=== PATIENT | female | born 1960 | race Caucasian/White ===

== ENCOUNTER 2017-12-19 13:49 | Day surgery (SDC) | payer BC ==
[2017-12-19 14:21] VITALS: BMI 24.7
[2017-12-19] MEDS ORDERED: PROPOFOL 20 ML ONE (15:13)
[2017-12-19] MEDS ORDERED: MIDAZOLAM HCL 2 MG/2 ML SINGLE DOSE VIAL ONE (15:13)
[2017-12-19] MEDS ORDERED: DEXAMETHASONE SOD PHOSPHATE 4 MG/1 ML VIAL ONE (15:14)
[2017-12-19] MEDS ORDERED: LIDOCAINE HCL/PF 2% SDV 5ML VIAL ONE (15:14)
--- NOTE | 2017-12-19 15:32 | HP ---
Past Medical History - Primary Care Physician PCP:: Chet Jovel - Admission Chief Complaint: 57yo P2 with menorrhagia and thickened Endom echo admitted for D&C History of Present Illness: LMP 6 mo ago. Pt began bleeding 2-3 days ago, heavily. She was noted to thickened Endo on US History Source: Patient, Medical Record Limitations to Obtaining History: No Limitations - Past Medical History POWDER SHOVELER: No: Alzheimer's, CVA, Dementia, Migraine, Multiple Sclerosis, Peripheral Neuropathy, Parkinson's, Seizure, Syncope, TIA, Vertigo, Other Cardiovascular: No: AFIB, Aneurysm, Aortic Insufficiency, Aortic Stenosis, CAD, CHF, Deep Vein Thrombosis, HTN, Hyperlipdemia, MA, Mitral Insufficiency, Mitral Stenosis, Murmur, Pulmonary Hypertension, Other Pulmonary: No: Asthma, Bronchitis, Cancer, COPD, O2 Dependent, Pneumonia, Previously Intubated, Pulmonary Embolus, Pulmonary Fibrosis, Sleep Apnea, Other Gastrointestinal: No: Ascites, Cancer, Constipation, Crohn's Disease, Diverticulitis, Diverticulosis, Esophageal Varices, Gastritis, GERD, GI Bleed, Hemorrhoids, Hiatal Hernia, Inflamatory Bowel Disease, Irritable Bowel Disease, Pancreatitis, Peptic Ulcer Disease, Ulcerative Colitis, Other Hepatobiliary: No: Cirrhosis, Cholelithiasis, Cholecystitis, Choledocholithiasis , Hepatitis A, Hepatitis B, Hepatitis C, Other Renal/: No: Renal Failure, Renal Inusuff, BPH, Cancer, Hematuria, Hemodialysis , Neurogenic Bladder, Renal Calculi, UTI, Other Reproductive: No: Ectopic , Endometriosis, Fibroids, PID, Polycystic Ovary Syndrome, Postmenopausal, Other ...Para: 2 (C/S) Heme/Onc: No: Anemia, B12 Deficiency, Bleeding Disorder, Cancer, Current Chemotherapy, Current Radiation Therapy, Hemochromatosis, Hypercoaguable State, Myeloproliferative Synd, Sickle Cell Disease, Sickle Cell Trait, Thrombocytopenia, Other Infectious Disease: No: AIDS, C-Diff, Herpes Zoster, HIV, MRSA, STD's, Tuberculosis, VREF, Other Psych: No: Addictions, Anxiety, Bipolar, Depression, Panic, Psychosis, Schizophrenia, Other Musculoskeletal: No: Bursitis, Chronic low back pain, Hemiparesis, Hemiplegia, Osteoarthritis, Paraplegia, Other Rheumatology: No: Fibromyalgia, Gout, Lupus, Rheumatoid Arthritis, Sarcoidosis, Vasculitis, Other ENT: No: Allergic Rhinitis, Sinusitis, Other Endocrine: No: [place]'s Disease, [place]'s Disease, Diabetes Insipidus, Diabetes Mellitus, Hyperparathyroidism, Hyperthyroidism, Hypothyroidism, Osteopenia, SIADH, Other Dermatology: No: Basal Cell, Cellulitis, Eczema, Melanoma, Psoriasis, Squamous Cell, Other - Past Surgical History Past Surgical History: Yes: Arthrosocopy, Breast Biopsy, Hx Myomectomy: No Hx Transabdominal Cerclage: No - Smoking History Smoking history: Former smoker Have you smoked in the past 12 months: No If you are a former smoker, when did you quit?: 1987 - Alcohol/Substance Use Hx Alcohol Use: No History of Substance Use: reports: None - Social History Usual Living Arrangement: Yes: Alone ADL: Independent 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 History of Recent Travel: No Home Medications - Allergies Allergies/Adverse Reactions: Allergies Allergy/AdvReac Type Severity Reaction Status Date / Time No Known Allergies Allergy Verified 12/19/17 14:15 - Home Medications Home Medications: Ambulatory Orders Ibuprofen [Advil -] 400 mg PO QID PRN 12/19/17 Family Disease History - Family Disease History Family History: Unremarkable Review of Systems - Review of Systems Constitutional: reports: Other (dizzy) Eyes: reports: No Symptoms HENT: reports: No Symptoms Neck: reports: No Symptoms Cardiovascular: reports: No Symptoms Respiratory: reports: No Symptoms Gastrointestinal: reports: No Symptoms Genitourinary: reports: Vaginal Bleeding Breasts: reports: No Symptoms Reported Musculoskeletal: reports: No Symptoms Integumentary: reports: No Symptoms Neurological: reports: No Symptoms Endocrine: reports: No Symptoms Hematology/Lymphatic: reports: No Symptoms Psychiatric: reports: No Symptoms Pain Intensity: 2 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 Vital Signs: Vital Signs Temperature 98.4 F 12/19/17 14:15 Pulse Rate 68 12/19/17 14:15 Respiratory Rate 18 12/19/17 14:15 Blood Pressure 146/65 12/19/17 14:15 O2 Sat by Pulse Oximetry (%) 98 12/19/17 14:25 Constitutional: Yes: Well Nourished, No Distress, Calm Eyes: Yes: WNL, Conjunctiva Clear HENT: Yes: WNL, Atraumatic, Normocephalic Neck: Yes: WNL, Supple, Trachea Midline Cardiovascular: Yes: WNL, Regular Rate and Rhythm Respiratory: Yes: WNL, Regular, CTA Bilaterally Gastrointestinal: Yes: WNL, Normal Bowel Sounds, Soft ...Rectal Exam: Yes: Deferred Renal/: Yes: WNL Pelvis: Yes: WNL External Genitalia: Yes: Normal Internal Exam Deferred: No Vaginal Exam: Yes: Bleeding Cervix: Yes: Normal Uterus: Yes: Normal Adnexa: Normal: Left, Right Musculoskeletal: Yes: WNL Extremities: Yes: WNL Edema: No Integumentary: Yes: WNL Neurological: Yes: WNL, Alert, Oriented ...Motor Strength: WNL Psychiatric: Yes: WNL, Alert, Oriented Imaging - Results Ultrasound: Report Reviewed Assessment/Plan 57yo P2 with premenopausal menorrhagia admitted for D&C, hysteroscopy. We had discussed the risks, benefits, alternatives of surgery at length including but not limited to infection, bleeding, scarring, perforation, amenorrhea, infertility, hysterectomy, etc. The pt verbalized understanding and requested to proceed with surgery. I emphasized that all surgeries have risks and no guarantees can be provided
[2017-12-19] MEDS ORDERED: ceFAZolin SODIUM 1 GM VIAL ONE (15:36)
[2017-12-19] MEDS ORDERED: ceFAZolin SODIUM 1 GM VIAL IVPB ONE (15:37)
--- NOTE | 2017-12-19 16:15 | OP ---
Operative Note - Note: Operative Date: 12/19/17 Pre-Operative Diagnosis: menometrorrhagia Operation: Hysteroscopy, D&C Findings: EUA= retroverted slightly enlarged uterus. Hysteroscopy= Disordered endometrium Post-Operative Diagnosis: Same as Pre-op Surgeon: Chet Jovel Anesthesiologist/TEST ENGINE EVALUATOR: Liban Zuniga Anesthesia: General Specimens Removed: Endometrial lining Estimated Blood Loss (mls): 15 Blood Volume Replaced (mls): 0 Fluid Volume Replaced (mls): 550 Operative Report Dictated: Yes
[2017-12-19] MEDS ORDERED: ONDANSETRON 4 MG/2 ML VIAL IVPUSH PRN (16:40)
[2017-12-19] MEDS ORDERED: LACTATED RINGERS SOLUTION 1,000 ML IV SCH (16:45)
[2017-12-19] MEDS ORDERED: oxyCODONE HCL 5 MG TABLET PO PRN ×2 (16:51)
[2017-12-19 18:24] VITALS: BP 139/68; PULSE 64; TEMP 98.3
--- NOTE | 2017-12-19 19:29 | OP ---
DATE OF OPERATION: 12/19/2017 PREOPERATIVE DIAGNOSIS: Menometrorrhagia. POSTOPERATIVE DIAGNOSIS: Menometrorrhagia. PROCEDURE: Hysteroscopy, dilatation and curettage. SURGEON: Chet Jovel MD CHIROPRACTIC CARE: None. ANESTHESIOLOGIST: Liban Zuniga MD ANESTHESIA: General. COMPLICATIONS: None. PATHOLOGY: Endometrial curettings. FINDINGS: Examination under anesthesia revealed a slightly enlarged retroverted uterus with no pelvic or adnexal masses. Hysteroscopy revealed a disordered endometrium with no other lesions. PROCEDURE: The patient was met preoperatively. Risks, benefits, and alternatives of surgery were discussed in detail. The patient was brought to the OR with the IV running. She was placed on the surgical table in the supine position. The general anesthesia was achieved without difficulty. The patient was then placed in a dorsal lithotomy position using adjustable Rod stirrups. She was examined under anesthesia with the findings as described above. The patient was then prepped and draped in the usual sterile fashion. A timeout procedure was conducted as per standard protocol. The weighted speculum was introduced inside the vagina with good visualization of the cervix. The cervix was dilated to accommodate size 21-José dilator. A diagnostic hysteroscope was then introduced inside the uterine cavity with findings as described above. The hysteroscope was then removed. A uterine curettage was performed, and the tissue was sent to Pathology for evaluation. Once the uterine curettage was completed, good hemostasis was noted. Sponge, lap, and needle counts were correct. The patient was transferred to recovery room in stable condition and awake. Alex [id number]
--- NOTE | 2017-12-29 14:57 | PATH ---
Surgical Pathology Report Patient Name: KALEIGH MAE [facility]. Rec. #: [id number] /Age/Gender: 1960 (Age: 57) / F Account: [id number] Location: OPERATING ROOM Taken: 12/19/2017 Received: 12/22/2017 Reported: 12/29/2017 Physicians: Chet Jovel M.D. Specimen(s) Received ENDOMETRIAL CURETTINGS Clinical History Excessive bleeding in the premenopausal period Final Diagnosis ENDOMETRIAL CURETTINGS, DILATION AND CURETTAGE: FRAGMENTS OF ENDOMETRIAL POLYP WITH COMPLEX ATYPICAL HYPERPLASIA, MUCINOUS METAPLASIA, CELLULAR TUFTING, PAPILLARY SYNCYTIAL AND DEGENERATIVE CHANGES WITH ATYPIA. Comment: Immunohistochemical stains performed at [place], [place] ([id number]) and interpreted at [facility] show p53 have focal positivity (wild type staining pattern), and focal diffuse positivity for p16 within the papillary fragments. These staining patterns coupled with morphologic findings are suggestive of focal areas of endometrial polyp infarction. Separate fragments have complex atypical hyperplasia. Proliferative marker and ER were utilized to evaluate this case. Case seen interdepartmentally. Suggest clinical correlation. Findings discussed with Dr. Jovel. Electronically Signed Claudia Riley M.D. Gross Description Received in formalin labeled "endometrial curettings," is a 3.8 x 3.1 x 0.3 cm aggregate of cuevas-brown soft tissue fragments admixed with blood clot. The formalin is filtered and the specimen is entirely submitted in 2 cassettes. /12/22/2017 saudi/12/22/2017
== END 2017-12-19 18:25 | disposition home or self-care (01) ==
LOC: JSAMEDAYSX 13:49 → JOR 13:49 → JASU-SURG 13:49 → JOR 18:25
PROVIDERS: ATTEND Obstetrics & Gynecology
PROC: 0UDB7ZX Extraction of Endometrium, Via Natural or Artificial Opening, Diagnostic (ICD-10-PCS; principal; 2017-12-19 14:30)
PROC: 0UJD8ZZ Inspection of Uterus and Cervix, Via Natural or Artificial Opening Endoscopic (ICD-10-PCS; 2017-12-19 14:30)
DX: N92.1 Excessive and frequent menstruation with irregular cycle (principal)
CPT/HCPCS: 86850; 86900; 86901; 88305-TC; 94760

== ENCOUNTER 2018-02-02 06:14 | Day surgery (SDC) | payer BC ==
[2018-01-29 17:04] VITALS: BMI 24.7
[2018-02-02] MEDS ORDERED: fentaNYL CITRATE 250 MCG/5 ML VIAL ONE (07:23)
[2018-02-02] MEDS ORDERED: SUCCINYLCHOLINE CHLORIDE 200 MG/10 ML VIAL ONE (07:23)
[2018-02-02] MEDS ORDERED: MIDAZOLAM HCL 2 MG/2 ML SINGLE DOSE VIAL ONE (07:23)
[2018-02-02] MEDS ORDERED: PROPOFOL 20 ML ONE (07:23)
[2018-02-02] MEDS ORDERED: ROCURONIUM BROMIDE 50 MG/5 ML VIAL ONE ×2 (07:23→09:08)
[2018-02-02] MEDS ORDERED: LIDOCAINE HCL/PF 2% SDV 5ML VIAL ONE (07:26)
[2018-02-02] MEDS ORDERED: DEXAMETHASONE SOD PHOSPHATE 4 MG/1 ML VIAL ONE (07:26)
[2018-02-02] MEDS ORDERED: BUPIVACAINE HCL/PF 0.5% (5MG/ML) 10 ML VIAL ONE (07:38)
[2018-02-02] MEDS ORDERED: LIDOCAINE HCL 1%, 10 MG/ML (20ML VIAL) ONE (07:38)
[2018-02-02] MEDS ORDERED: ceFAZolin SODIUM 1 GM VIAL IVPB ONE (07:56)
[2018-02-02] MEDS ORDERED: ceFAZolin SODIUM 1 GM VIAL ONE (07:57)
[2018-02-02] MEDS ORDERED: ISOSULFAN BLUE 10 MG/ML VIAL SQ ONE (08:00)
[2018-02-02] MEDS ORDERED: NEOSTIGMINE METHYLSULFATE 0.5 MG/ML - 10 ML MDV ONE (09:51)
[2018-02-02] MEDS ORDERED: GLYCOPYRROLATE 0.2 MG/1 ML VIAL ONE (10:18)
--- NOTE | 2018-02-02 10:55 | OP ---
Operative Note - Note: Operative Date: 02/02/18 Pre-Operative Diagnosis: 57yo P2 with menometrorrhagia and complex endometrial hyperplasia with atypia Operation: TLH, BSO, cystoscopy Findings: Small normal uterus, normal ovaries and tubes Post-Operative Diagnosis: Same as Pre-op Surgeon: Chet Jovel [employer] Machine Tender: Ruma Ziegler Anesthesiologist/PLATINUM AND PALLADIUM KETTLE TENDER: Quincy Mendez Anesthesia: General Specimens Removed: Uterus, cervix, tubes, ovaries Estimated Blood Loss (mls): 30 Drains & Tubes with Location: Flaherty cath Drains, Volume Out (mls): 400 Blood Volume Replaced (mls): 0 Fluid Volume Replaced (mls): 900 Operative Report Dictated: Yes
[2018-02-02] MEDS ORDERED: oxyCODONE HCL 5 MG TABLET PO PRN (12:14)
[2018-02-02] MEDS ORDERED: LACTATED RINGERS SOLUTION 1,000 ML/1,000 ML INFUS.BAG IV SCH (12:15)
[2018-02-02] MEDS ORDERED: IBUPROFEN 600 MG TABLET (FP) PO PRN (12:15)
[2018-02-02] MEDS ORDERED: ONDANSETRON 4 MG/2 ML VIAL IM PRN (12:25)
[2018-02-02] MEDS ORDERED: ONDANSETRON 4 MG/2 ML VIAL IVPB PRN (13:08)
[2018-02-02] MEDS: SIMETHICONE 80 MG TAB.CHEW (FP) PO PRN ×2 (15:08→19:13)
--- NOTE | 2018-02-02 19:55 | OP ---
DATE OF OPERATION: 02/02/2018 PREOPERATIVE DIAGNOSES: Menometrorrhagia, complex endometrial hyperplasia with atypia. POSTOPERATIVE DIAGNOSES: Menometrorrhagia, complex endometrial hyperplasia with atypia. SURGERY: Total laparoscopic hysterectomy, bilateral salpingo-oophorectomy, cystoscopy. SURGEON: Chet Jovel MD CAN SLIDER: Ruma Ziegler MD ANESTHESIOLOGIST: Quincy Mendez MD PATHOLOGY: Uterus with cervix, bilateral tubes and ovaries. ESTIMATED BLOOD LOSS: 30 mL INTRAVENOUS FLUIDS: 900 mL COMPLICATIONS: None. FINDINGS: Examination under anesthesia revealed a small retroverted uterus with no pelvic or adnexal masses. Laparoscopy revealed small retroverted uterus with normal fallopian tubes and ovaries, normal bowel, normal liver and gallbladder. Cystoscopy revealed normal bladder. Both ureters produced normal ureteral jets. PROCEDURE: The patient was met preoperatively. Risks, benefits, and alternatives of surgery were discussed in details. All questions were answered. The consent form was reviewed and signed. The patient requested to proceed with surgery. The patient was brought to the OR with the IV running. She was placed on a surgical table in the supine position. The general anesthesia was achieved without difficulty. The patient was then placed in a dorsal lithotomy position using adjustable Rod stirrups. She was examined under anesthesia with the findings as described above. The timeout was conducted as per standard protocol. The patient was then prepped and draped in the usual sterile fashion. A 5-mm incision was made inside the umbilicus. A Veress needle was introduced through the umbilical incision into the peritoneal cavity. The intraperitoneal placement was confirmed. The pneumoperitoneum was then produced without complications. The Veress needle was removed. A 5-mm trocar was placed through the umbilical incision under direct visualization with the laparoscope. Survey of the abdominal cavity revealed normal uterus and fallopian tubes. There were normal ovaries, bowel, liver, and gallbladder. A second 5-mm incision was made in the left lower quadrant, and the 5-mm trocar was placed under direct visualization. Another 5-mm trocar was placed in the right lower quadrant under direct visualization. Another 5-mm trocar was placed in the left mid quadrant under direct visualization. The uterus was manipulated by using a VCare device. The LigaSure device was then used to cauterize and transect bilateral infundibulopelvic ligaments. The LigaSure device was then used to cauterize and transect the broad ligament all the way to the round ligaments bilaterally. The round ligaments were also cauterized and transected. The bladder peritoneum was then incised, and the bladder peritoneum incision was carried down medially towards the lower uterine segment and cervix. The posterior leaf of the broad ligament was also cauterized and transected towards the uterosacral ligaments. The uterine vessels were isolated and skeletonized. The uterine vessels were then cauterized and transected with good hemostasis. Bilateral ureters were visualized and traced from the pelvic brim to the cardinal ligaments. The bladder was then dissected away from the cervicovaginal fascia. The vaginal incision was then made, and colpotomy was created around the VCare cup. The cervix was then excised using a LigaSure device. The uterus, ovaries, and tubes were removed vaginally without complications. A V-Loc suture was then used to close the vaginal cuff laparoscopically with good hemostasis. Once the vaginal cuff was closed, the operative site was irrigated using copious amounts of normal saline. Once the saline was aspirated, good hemostasis was confirmed. The attention was then turned to the cystoscopy part of the procedure. A cystoscope was sterilely advanced through the urethra into the bladder. Left and right ureteral orifices were noted, and normal ureteral jets were observed. The cystoscopy was then ended, and the cystoscope was removed. Flaherty catheter was placed inside the bladder. The pneumoperitoneum was reduced. All of the laparoscopic instruments were removed. Sponge, lap, and needle counts were correct. The skin incisions were closed. The patient was returned to supine position and transferred to recovery room in stable condition and awake. Alex [id number]
[2018-02-02] MEDS: ACETAMINOPHEN 325 MG TABLET (FP) PO PRN (20:51)
[2018-02-03] MEDS: SIMETHICONE 80 MG TAB.CHEW (FP) PO PRN ×3 (01:23→08:02)
[2018-02-03] MEDS: ACETAMINOPHEN 325 MG TABLET (FP) PO PRN (08:02)
[2018-02-03 08:58] VITALS: BP 142/71; PULSE 57; TEMP 98.4
--- NOTE | 2018-02-03 09:47 | PN ---
Progress Note (SOAP) - Subjective Chief Complaint: No complaints History of Present Illness: POD#1 s/p TLH, BSO, cystoscopy - Current Medications Current Medications: Active Medications Acetaminophen (Tylenol -) 650 mg PO Q6H PRN PRN Reason: FEVER Last Admin: 02/03/18 08:02 Dose: 650 mg Lactated Ringer's (Lactated Ringers Solution) 1,000 ml in 1,000 mls @ 125 mls/ hr IV ASDIR LUPE Last Admin: 02/02/18 12:20 Dose: 125 mls/hr Ibuprofen (Motrin -) 600 mg PO Q6H PRN PRN Reason: PAIN Ondansetron HCl (Zofran Injection) 4 mg IVPB Q6H PRN PRN Reason: NAUSEA Last Admin: 02/02/18 13:17 Dose: 4 mg Oxycodone HCl (Roxicodone -) 5 mg PO Q4H PRN PRN Reason: PAIN LEVEL 4 - 6 Last Admin: 02/03/18 08:03 Dose: 5 mg Simethicone (Mylicon -) 80 mg PO Q4H PRN PRN Reason: GAS Last Admin: 02/03/18 08:02 Dose: 80 mg - Objective Vital Signs: Vital Signs Temperature 98.4 F 02/03/18 08:57 Pulse Rate 57 L 02/03/18 08:57 Respiratory Rate 20 02/03/18 08:57 Blood Pressure 142/71 02/03/18 08:57 O2 Sat by Pulse Oximetry (%) 99 02/02/18 12:34 Constitutional: Yes: Well Nourished, No Distress, Calm Eyes: Yes: WNL, Conjunctiva Clear, EOM Intact HENT: Yes: WNL, Atraumatic, Normocephalic Neck: Yes: WNL, Supple, Trachea Midline Cardiovascular: Yes: WNL, Regular Rate and Rhythm Respiratory: Yes: WNL, Regular, CTA Bilaterally Gastrointestinal: Yes: WNL, Normal Bowel Sounds ...Rectal Exam: Yes: Deferred Genitourinary: Yes: WNL Musculoskeletal: Yes: WNL Extremities: Yes: WNL Peripheral Pulses WNL: Yes Edema: No Integumentary: Yes: WNL Wound/Incision: Yes: Clean/Dry, Well Approximated, Sutures Intact, Steri Strips Neurological: Yes: WNL, Alert, Oriented ...Motor Strength: Yes: WNL Psychiatric: Yes: WNL, Alert, Oriented Assessment/Plan 57yo POD#1 s/p TLH, BSO, cystoscopy. Pt is well, recovering normally. She denies nausea and vomiting. She has no fever or chills, pain is well controlled. Pt w/o flatus yet but has normal BS. Plan to d/c home. Instructions given.
--- NOTE | 2018-02-10 17:23 | PATH ---
Surgical Pathology Report Patient Name: KALEIGH MAE [facility]. Rec. #: [id number] /Age/Gender: 1960 (Age: 57) / F Account: [id number] Location: AMBULATORY SURG Taken: 02/02/2018 Received: 02/02/2018 Reported: 02/10/2018 Physicians: Chet Jovel M.D. Specimen(s) Received UTERUS, CERVIX, WITH B/L TUBES AND B/L OVARIES Clinical History Bleeding, polyps Final Diagnosis UTERUS, CERVIX, BILATERAL TUBES AND OVARIES, HYSTERECTOMY AND SALPINGO-OOPHORECTOMY: PROLIFERATIVE ENDOMETRIUM WITH ACUTE ENDOMETRITIS AND FOCAL SQUAMOUS METAPLASIA. ADENOMYOSIS, FOCAL. ONE FOCUS OF EPITHELIOID SMOOTH MUSCLE PROLIFERATION IN THE MYOMETRIUM. SEE COMMENT. CERVIX WITH CELESTINE 1 (CERVICAL INTRAEPITHELIAL NEOPLASIA, GRADE 1). MARGIN IS NEGATIVE FOR DYSPLASIA. LEFT FALLOPIAN TUBE WITH PARATUBAL CYST. UNREMARKABLE LEFT OVARY. RIGHT OVARY WITH CYSTIC FOLLICLE. UNREMARKABLE RIGHT FALLOPIAN TUBE. Comment: Entire endometrial tissue submitted. Previous biopsy material ([id number]) with complex atypical hyperplasia was reviewed interdepartmentally. One focus of epithelioid smooth muscle proliferation noted. Immunohistochemistry stain (performed at [facility], [id number], [place], [place]) and interpreted at [facility] showing this focus is positive for SMA, negative for AE1/ AE3, CD10 and CD31. Electronically Signed Napoleon Stewart M.D. Gross Description Received in formalin labeled "uterus, fallopian tubes, ovaries, cervix," is a 148 g uterus with an attached cervix and bilateral attached adnexa. The specimen measures 10 cm from superior to inferior, 5.5 cm from left to right and 5.0 cm from anterior to posterior. The serosa is cuevas-hubbard and smooth. The attached cervix measures 3.7 cm in length and averages 2.8 cm in diameter. The ectocervix is cuevas-pink and smooth. The endocervix is unremarkable. Sectioning of the cervix reveals abundant nabothian cysts. The endometrial cavity measures 4.5 cm in length and averages 2.7 cm from cornu to cornu. The anterior endometrium displays a 1.5 x 0.3 x 0.1 cm polypoid lesion. The remaining endometrium is cuevas-red and averages 0.1 cm in thickness. The myometrium is cuevas-pink and measures up to 2.4 cm in thickness. No intramural nodules are identified. The left fimbriated fallopian tube appears previously ligated and measures 3 cm in length. The outer surface is cuevas-hubbard with a 1.8 cm in greatest dimension attached paratubal cyst. Sectioning reveals an unremarkable fallopian tube lumen. The left ovary measures 2.6 x 1.5 x 1.0 cm. The outer surface is cuevas, convoluted and smooth. Sectioning reveals a 0.8 cm greatest dimension serous cyst. The remaining ovarian parenchyma is unremarkable. The right fimbriated fallopian tube appears previously ligated and measures 0.9 cm in length. The outer surface is cuevas-hubbard and smooth. Sectioning reveals an unremarkable lumen. The right ovary measures 3.0 x 1.8 x 1.7 cm. The outer surface is cuevas and convoluted. Sectioning reveals a 1.7 cm greatest dimension serous cyst. The remaining ovarian parenchyma is cuevas and unremarkable. Leather Stretcher sections are submitted in 13 cassettes as follows: 1-anterior cervix; 2-posterior cervix; 3-anterior endomyometrium with endometrial polyp; 4-additional anterior endomyometrium; 8-9-eusfzoauc endomyometrium; 7-left fallopian tube fimbria; 8-cross sections of left fallopian tube with paratubal cyst; 9-left ovary; 10-right fallopian tube fimbria; 11-cross sections of right fallopian tube; 12-right ovarian cyst; 13-right ovary. The remaining endometrium is submitted as follows: 16-01-ecoqvunw endometrium sequentially from superior to inferior; 83-48-[id number] endometrium sequentially from superior to inferior. 02/03/2018 [facility]02/03/2018
== END 2018-02-03 12:15 | disposition home or self-care (01) ==
LOC: JASUSAT 06:14 → J3W 12:12 → JASUSAT 02-03 12:15
PROVIDERS: ATTEND Obstetrics & Gynecology
PROC: 0UT9FZZ Resection of Uterus, Via Natural or Artificial Opening With Percutaneous Endoscopic Assistance (ICD-10-PCS; principal; 2018-02-02 07:30)
PROC: 0UT2FZZ Resection of Bilateral Ovaries, Via Natural or Artificial Opening With Percutaneous Endoscopic Assistance (ICD-10-PCS; 2018-02-02 07:30)
PROC: 0UT7FZZ Resection of Bilateral Fallopian Tubes, Via Natural or Artificial Opening With Percutaneous Endoscopic Assistance (ICD-10-PCS; 2018-02-02 07:30)
DX: N92.0 Excessive and frequent menstruation with regular cycle (principal); N85.02 Endometrial intraepithelial neoplasia [EIN]
CPT/HCPCS: 86850; 86900; 86901; 88307-TC; 94010; 94760

== ENCOUNTER 2023-05-16 09:55 | Emergency (ER) | payer BC ==
[2023-05-16 10:21] VITALS: BP 149/59; PULSE 72; RESP 18; TEMP 98.7; BMI 27.4
[2023-05-16] MEDS ORDERED: ACETAMINOPHEN 1000 MG/100 ML BAG IVPB ONE (10:33)
[2023-05-16] MEDS ORDERED: SODIUM CHLORIDE 0.9% 500 ML INFUS.BAG IV ONE (10:33)
[2023-05-16] MEDS ORDERED: FAMOTIDINE 20 MG/50 ML IVPB 20 MG/50 ML MG IVPB ONE ×2 (10:33→10:57)
[2023-05-16] MEDS ORDERED: ONDANSETRON 4 MG/2 ML VIAL IVPB ONE (10:33)
[2023-05-16] MEDS ORDERED: ONDANSETRON 4 MG/2 ML VIAL ONE (10:57)
[2023-05-16] MEDS ORDERED: ACETAMINOPHEN INJECTION 100 ML IVPB ONE (10:57)
[2023-05-16 11:02] LABS: HEMATOCRIT 44.1 % (32.4-45.2); HEMOGLOBIN 14.6 G/dL (10.7-15.3); MCH 30.5 pg (25.7-33.7); MEAN CELL VOLUME 92.3 fl (80-96); MEAN PLT VOLUME 8.1 fl (7.5-11.1); PLATELET COUNT 278.6 10^3/uL (134-434); RBC 4.78 10^6/uL (3.60-5.2); RDW 13.2 % (11.6-15.6); WHITE BLOOD COUNT 11.1 10^3/uL (4.0-10.8)
[2023-05-16 11:12] LABS: BILIRUBIN,TOTAL 0.9 mg/dl (0.2-1); BLOOD UREA NITROGEN 13.5 mg/dl (7-18); CALCIUM 8.9 mg/dl (8.5-10.1); CREATININE 0.7 mg/dl (0.6-1.3); MAGNESIUM 2.1 mg/dL (1.8-2.4); POTASSIUM 4.4 mmol/L (3.5-5.1); SGOT/AST 11.4 U/L (15-37); TOT PROT 6.1 g/dl (6.4-8.2)
[2023-05-16 11:17] LABS: EPITHELIAL CELLS FEW /hpf
[2023-05-16 11:51] LABS: PLATELET ESTIMATE ADEQUATE
[2023-05-16] MEDS ORDERED: METOCLOPRAMIDE HCL INJECTION 10 MG/2 ML VIAL IVPB ONE (13:28)
[2023-05-16] MEDS ORDERED: METOCLOPRAMIDE HCL INJECTION 10 MG/2 ML VIAL ONE (13:52)
== END 2023-05-16 15:10 | disposition home or self-care (01) ==
LOC: FER 09:55
PROC: 3E033GC Introduction of Other Therapeutic Substance into Peripheral Vein, Percutaneous Approach (ICD-10-PCS; principal; 2023-05-16)
PROC: 3E033NZ Introduction of Analgesics, Hypnotics, Sedatives into Peripheral Vein, Percutaneous Approach (ICD-10-PCS; 2023-05-16)
PROC: 3E033GC Introduction of Other Therapeutic Substance into Peripheral Vein, Percutaneous Approach (ICD-10-PCS; 2023-05-16)
PROC: 3E033GC Introduction of Other Therapeutic Substance into Peripheral Vein, Percutaneous Approach (ICD-10-PCS; 2023-05-16)
DX: R10.32 Left lower quadrant pain (principal); R19.7 Diarrhea, unspecified; R11.0 Nausea; Z20.822 Contact with and (suspected) exposure to COVID-19
CPT/HCPCS: 0241U-QW; 36415; 74177-TC; 80053; 81003; 81015; 83690; 83735; 85027; 87086; 93005; 99285-25; Q9967

== ENCOUNTER 2024-02-03 04:12 | Day surgery (SDC) | payer BC ==
[2023-10-27 13:17] VITALS: BMI 26.6
[2024-02-03 09:40] VITALS: RESP 16
[2024-02-03] MEDS ORDERED: MIDAZOLAM HCL 2 MG/2 ML SINGLE DOSE VIAL ONE (12:58)
[2024-02-03] MEDS ORDERED: SUCCINYLCHOLINE CHLORIDE 200 MG/10 ML SYRINGE ONE (13:00)
[2024-02-03] MEDS ORDERED: ELECTROLYTE-148 SOLN 1,000 ML IV SCH (13:00)
[2024-02-03] MEDS ORDERED: PROPOFOL 40 ML ONE (13:00)
[2024-02-03] MEDS ORDERED: ceFAZolin SODIUM 1 GM VIAL ONE (13:07)
[2024-02-03] MEDS ORDERED: LIDOCAINE HCL/PF 2% SDV 5ML VIAL ONE (13:07)
[2024-02-03] MEDS: ceFAZolin SODIUM 1 GM VIAL IVPB ONE (13:09)
[2024-02-03] MEDS ORDERED: ONDANSETRON 4 MG/2 ML VIAL IVPUSH PRN (14:03)
[2024-02-03] MEDS: ACETAMINOPHEN 1000 MG/100 ML BAG IVPB ONE (14:30)
[2024-02-03] MEDS: LACTATED RINGERS SOLUTION 1,000 ML IV SCH (14:56)
[2024-02-03 15:54] VITALS: BP 116/60; PULSE 70; TEMP 98
== END 2024-02-03 16:28 | disposition home or self-care (01) ==
LOC: JASU-SURG 04:12
PROVIDERS: ATTEND Urology
PROC: 0TC48ZZ Extirpation of Matter from Left Kidney Pelvis, Via Natural or Artificial Opening Endoscopic (ICD-10-PCS; principal; 2024-02-03 11:30)
PROC: 0T778DZ Dilation of Left Ureter with Intraluminal Device, Via Natural or Artificial Opening Endoscopic (ICD-10-PCS; 2024-02-03 11:30)
DX: N20.0 Calculus of kidney (principal)
CPT/HCPCS: 76000-TC-FY; 94760; C1747; C1769; C2617; J0131